=== PATIENT | female | born 1985 | race Caucasian/White ===

== ENCOUNTER 2022-08-04 02:55 | Inpatient (IN) | payer BC ==
[2022-08-11] MEDS ORDERED: cefOXitin 2 GM Vial ONE (06:39)
[2022-08-11] MEDS ORDERED: fentaNYL 250 MCG/5 ML SDV ONE ×2 (08:16→11:49)
[2022-08-11] MEDS ORDERED: Propofol 200 MG/20 ML SDV ONE (08:17)
[2022-08-11] MEDS ORDERED: Rocuronium 50 MG/5 ML Vial ONE ×2 (08:17→11:38)
[2022-08-11] MEDS ORDERED: Ondansetron 4 MG/2 ML SDV ONE (08:17)
[2022-08-11] MEDS ORDERED: Dexamethasone 4 MG/ML SDV ONE (08:17)
[2022-08-11] MEDS ORDERED: Glycopyrrolate 0.2 MG/ML 5 ML MDV ONE (08:17)
[2022-08-11] MEDS ORDERED: Neostigmine Methylsulfate 1 MG/ML 5 ML Syringe ONE (08:17)
[2022-08-11] MEDS ORDERED: Succinylcholine 200 MG/10 ML MDV ONE (08:17)
[2022-08-11] MEDS ORDERED: Celecoxib 200 MG Cap PO ONE (08:45)
[2022-08-11] MEDS ORDERED: cefOXitin 2 GM in Sodium Chloride 0.9% 50 ML IV ONE (08:45)
[2022-08-11] MEDS ORDERED: Scopolamine 1.5 MG Transdermal Patch TOP ONE (08:45)
[2022-08-11] MEDS ORDERED: Dextrose 5%-Lactated Ringers 1,000 ML IV SCH (08:45)
[2022-08-11 09:26] LABS: ESTIMATED GFR 84 mL/min (>60)
[2022-08-11] MEDS ORDERED: Ketamine 500 MG/5 ML MDV IV SCH (10:00)
[2022-08-11] MEDS ORDERED: Ketamine 20 MG in Sodium Chloride 0.9% 19.8 ML IV SCH (10:00)
[2022-08-11] MEDS: cefOXitin 2 GM Vial ONE ×2 (12:20→12:57)
[2022-08-11] MEDS ORDERED: Ketoconazole 2% Crm 30 GM Tube ONE (12:31)
[2022-08-11] MEDS ORDERED: Lactated Ringers 1,000 ML ONE (12:58)
[2022-08-11] MEDS ORDERED: 50% Dextrose in Water 50 ML Syringe IVPUSH PRN ×2 (13:37→15:00)
[2022-08-11] MEDS ORDERED: Glucagon,Human Recombinant 1 MG Vial IM PRN ×2 (13:37→15:00)
[2022-08-11] MEDS ORDERED: Insulin Lispro 100 Unit/ML 3 ML KwikPen SUBCUT ONE (13:37)
[2022-08-11] MEDS ORDERED: hydrOXYzine HCl 50 MG/ML SDV IM ONE (13:42)
[2022-08-11] MEDS ORDERED: fentaNYL 50 MCG/ML SDV IVPUSH ONE (13:42)
[2022-08-11] MEDS ORDERED: Acetaminophen 500 MG Tab PO PRN (15:00)
[2022-08-11] MEDS ORDERED: diphenhydrAMINE 50 MG/ML SDV IVPUSH PRN (15:00)
[2022-08-11] MEDS ORDERED: Lactated Ringers 1,000 ML IV SCH (15:00)
[2022-08-11] MEDS ORDERED: traMADol 50 MG Tab PO PRN (15:00)
[2022-08-11] MEDS ORDERED: Ondansetron 4 MG/2 ML SDV IVPUSH PRN (15:00)
[2022-08-11] MEDS ORDERED: Labetalol 20 MG/4 ML Syringe IVPUSH PRN (15:00)
[2022-08-11] MEDS ORDERED: Metoclopramide 10 MG/2 ML SDV IVPUSH PRN (15:00)
[2022-08-11] MEDS ORDERED: HYDROmorphone 1 MG/ML Syringe IV PRN (15:00)
[2022-08-11] MEDS ORDERED: hydrOXYzine HCl 50 MG/ML SDV IM PRN (15:00)
[2022-08-11] MEDS ORDERED: HYDROmorphone 0.5 MG/0.5 ML Syringe IVPUSH PRN (15:00)
[2022-08-11] MEDS: Cyclobenzaprine 10 MG Tab PO PRN (15:02)
[2022-08-11] MEDS: MVI, Adult with Vitamin K 10 ML, Thiamine 200 MG, Zinc/Copper/Manganese/Selenium 1 ML i... IV SCH ×4 (15:54)
[2022-08-11] MEDS: Acetaminophen 500 MG Tab PO SCH ×2 (15:55→23:18)
[2022-08-11] MEDS: Pantoprazole 40 MG Vial IVPUSH SCH (15:55)
[2022-08-11] MEDS: Insulin Lispro 100 Unit/ML 3 ML KwikPen SUBCUT SCH ×2 (16:01→22:06)
[2022-08-11] MEDS: cefOXitin 2 GM in Sodium Chloride 0.9% 50 ML IV SCH ×2 (17:15→23:17)
[2022-08-11] MEDS: Heparin Sodium 5,000 Units/ML Vial SUBCUT SCH (19:18)
[2022-08-11] MEDS: oxyCODONE 5 MG Tab PO PRN (19:22)
[2022-08-11] MEDS ORDERED: COLESTIPOL 1 GM PO SCH (21:00)
[2022-08-12] MEDS: oxyCODONE 5 MG Tab PO PRN ×3 (02:42→18:15)
[2022-08-12] MEDS ORDERED: Iopamidol 612 MG/ML 30 ML SDV PO ONE (02:50)
[2022-08-12] MEDS: Insulin Lispro 100 Unit/ML 3 ML KwikPen SUBCUT SCH ×4 (04:17→21:26)
[2022-08-12] MEDS: cefOXitin 2 GM in Sodium Chloride 0.9% 50 ML IV SCH ×3 (05:17→16:42)
[2022-08-12] MEDS: Heparin Sodium 5,000 Units/ML Vial SUBCUT SCH ×2 (05:19→18:15)
[2022-08-12] MEDS ORDERED: Ondansetron 4 MG Tab.DIS PO PRN (06:58)
[2022-08-12] MEDS ORDERED: Lactated Ringers 1,000 ML IV SCH (07:00)
[2022-08-12] MEDS ORDERED: hydrOXYzine HCl 25 MG Tab PO PRN (07:00)
[2022-08-12] MEDS: Cyclobenzaprine 10 MG Tab PO PRN ×2 (07:11→15:43)
[2022-08-12] MEDS: Acetaminophen 500 MG Tab PO SCH ×3 (07:13→23:27)
[2022-08-12] MEDS: buPROPion 150 MG Tab.ER PO SCH (08:01)
[2022-08-12] MEDS: Celecoxib 200 MG Cap PO SCH ×2 (08:01→20:31)
[2022-08-12] MEDS: SCOPOLAMINE PATCH CHECK TOP SCH (08:01)
[2022-08-12] MEDS: Cetirizine 10 MG Tab PO SCH (08:01)
[2022-08-12] MEDS: MVI, Adult with Vitamin K 10 ML, Thiamine 200 MG, Zinc/Copper/Manganese/Selenium 1 ML i... IV SCH ×4 (15:43)
[2022-08-12] MEDS: Pantoprazole 40 MG Vial IVPUSH SCH (16:43)
[2022-08-13] MEDS: Insulin Lispro 100 Unit/ML 3 ML KwikPen SUBCUT SCH (04:36)
[2022-08-13] MEDS: cefOXitin 2 GM in Sodium Chloride 0.9% 50 ML IV SCH (05:54)
[2022-08-13] MEDS: Heparin Sodium 5,000 Units/ML Vial SUBCUT SCH (06:05)
[2022-08-13] MEDS ORDERED: Magnesium Hydroxide 400 MG/5 ML Susp 30 ML Cup PO PRN (07:13)
[2022-08-13] MEDS: oxyCODONE 5 MG Tab PO PRN (08:44)
[2022-08-13] MEDS: Acetaminophen 500 MG Tab PO SCH (08:45)
[2022-08-13] MEDS: buPROPion 150 MG Tab.ER PO SCH (08:45)
[2022-08-13] MEDS: Celecoxib 200 MG Cap PO SCH (08:45)
[2022-08-13] MEDS: Cetirizine 10 MG Tab PO SCH (08:46)
[2022-08-13] MEDS: SCOPOLAMINE PATCH CHECK TOP SCH (08:46)
[2022-08-13] MEDS ORDERED: Cyanocobalamin (Vitamin B12) 1,000 MCG/ML SDV IM ONE (09:00)
== END 2022-08-13 11:12 | disposition home or self-care (01) | DRG 403 ==
LOC: JP.SDSSCHI 08-11 08:10 → JP.ICU 08-11 13:20
PROVIDERS: ADMIT Surgery; ATTEND Surgery
PROC: 0D194ZB Bypass Duodenum to Ileum, Percutaneous Endoscopic Approach (ICD-10-PCS; principal; 2022-08-11)
PROC: 0DB64Z3 Excision of Stomach, Percutaneous Endoscopic Approach, Vertical (ICD-10-PCS; 2022-08-11)
PROC: 07BP4ZZ Excision of Spleen, Percutaneous Endoscopic Approach (ICD-10-PCS; 2022-08-11)
PROC: 0BQT4ZZ Repair Diaphragm, Percutaneous Endoscopic Approach (ICD-10-PCS; 2022-08-11)
PROC: 0FB24ZX Excision of Left Lobe Liver, Percutaneous Endoscopic Approach, Diagnostic (ICD-10-PCS; 2022-08-11)
DX: E66.01 Morbid (severe) obesity due to excess calories (principal); Q89.09 Congenital malformations of spleen; I10 Essential (primary) hypertension; R51.9 Headache, unspecified; K44.9 Diaphragmatic hernia without obstruction or gangrene; E11.65 Type 2 diabetes mellitus with hyperglycemia; R16.0 Hepatomegaly, not elsewhere classified; F41.9 Anxiety disorder, unspecified; Z90.49 Acquired absence of other specified parts of digestive tract; Z98.890 Other specified postprocedural states; Z82.49 Family history of ischemic heart disease and other diseases of the circulatory system; Z68.43 Body mass index [BMI] 50.0-59.9, adult; Z87.891 Personal history of nicotine dependence
CPT/HCPCS: 36415; 74240; 74240-26; 80053; 82947; 83036; 83735; 83880; 84100; 84703; 85027; 86850; 86900; 86901; A9270-GY; C9113; J0171; J0330; J0694; J1100; J1170; J1644; J1815; J2405; J2704; J2710; J2795; J3010; J3410; J3411; J3420; J3490; J7120; J7121; Q0162; Q9967